=== PATIENT | female | born 1965 | race Hispanic/Latino ===

== ENCOUNTER 2019-04-27 21:50 | Inpatient (IN) | payer MEDICAID ==
[2019-04-27 22:26] VITALS: BMI 26.6
[2019-04-27 22:40] LABS: HCG,QUALITATIVE URINE NEGATIVE (NEGATIVE)
[2019-04-27 22:44] LABS: SQUAMOUS EPITHIAL < 1 /hpf (0-5); URINE BACTERIA RARE (<OCC); URINE BILIRUBIN NEGATIVE (NEGATIVE); URINE BLOOD NEGATIVE (NEGATIVE); URINE CLARITY Clear (Clear); URINE COLOR Colorless (YELLOW); URINE GLUCOSE (UA) NORMAL (Normal); URINE LEUKOCYTE ESTERASE 1+ Leu/uL (Negative); URINE PROTEIN NEGATIVE (NEGATIVE); URINE UROBILINOGEN NORMAL mg/dL (0.2-1.0)
--- NOTE | 2019-04-27 22:51 | C.PDOC ---
History Of Present Illness prescreened for heroine/alcohol detox 10 bags/day intranasal 6-pack of beer daily no IVDA <Neno Rowan - Last Filed: 04/27/19 23:20> History Per: Patient History/Exam Limitations: no limitations Onset/Duration Of Symptoms: Days Current Symptoms Are (Timing): Still Present Suicide/Self Injury Attempted (Context): None Modifying Factor(s): Alcohol, Narcotics Severity: Moderate Pain Scale Rating Of: 0 Associated Symptoms: Depression. denies: Anger, Anxiety, Agitation <Neno Rowan - Last Filed: 04/27/19 23:20> <Nayan Blair - Last Filed: 04/28/19 00:18> Time Seen by Provider: 04/27/19 22:25 Chief Complaint (Nursing): Substance Abuse Past Medical History Reviewed: Historical Data, Nursing Documentation - Medical History PMH: HTN, Hypothyroidism, Pulmonary Embolism, TIA Denies: Depression, Chronic Kidney Disease Surgical History: Tonsillectomy - [facility] INTRODUCE OTH THERAP SUBST IN PERIPH VEIN, PERC (11/08/16) MEASURE OF CARDIAC SAMPL & PRESSURE, L HEART, PERC APPROACH (11/08/16) OTHER SKIN & SUBQ I D (08/22/03) PERFORMANCE OF CARDIAC OUTPUT, SINGLE, MANUAL (11/08/16) PLAIN RADIOGRAPHY OF LEFT HEART USING LOW OSMOLAR CONTRAST (11/08/16) PLAIN RADIOGRAPHY OF MULT COR ART USING L OSM CONTRAST (11/08/16) Family History: States: No Known Family Hx - Social History Hx Tobacco Use: No Hx Alcohol Use: Yes Hx Substance Use: Yes - Immunization History Hx Tetanus Toxoid Vaccination: No Hx Influenza Vaccination: No Hx Pneumococcal Vaccination: No <Neno Rowan - Last Filed: 04/27/19 23:20> Vital Signs: Last Vital Signs Temp 97.7 F 04/27/19 22:29 Pulse 69 04/27/19 22:29 Resp 16 04/27/19 22:29 BP 122/74 04/27/19 22:29 Pulse Ox 96 04/27/19 22:29 - [facility] Procedures INTRODUCE OTH THERAP SUBST IN PERIPH VEIN, PERC (11/08/16) MEASURE OF CARDIAC SAMPL & PRESSURE, L HEART, PERC APPROACH (11/08/16) OTHER SKIN & SUBQ I D (08/22/03) PERFORMANCE OF CARDIAC OUTPUT, SINGLE, MANUAL (11/08/16) PLAIN RADIOGRAPHY OF LEFT HEART USING LOW OSMOLAR CONTRAST (11/08/16) PLAIN RADIOGRAPHY OF MULT COR ART USING L OSM CONTRAST (11/08/16) <Nayan Blair - Last Filed: 04/28/19 00:18> Review Of Systems Except As Marked, All Systems Reviewed And Found Negative. <Neno Rowan - Last Filed: 04/27/19 23:20> Physical Exam - Physical Exam Appears: Well, Toxic Skin: Normal Color, Warm Head: Atraumatic, Normacephalic Eye(s): bilateral: Normal Inspection Oral Mucosa: Moist <Neno Rowan - Last Filed: 04/27/19 23:20> ED Course And Treatment - Laboratory Results Result Diagrams: 04/27/19 23:11 <Neno Rowan - Last Filed: 04/27/19 23:20> - Laboratory Results Result Diagrams: 04/27/19 23:11 04/27/19 23:11 Lab Results: Total Bilirubin 0.2 mg/dL (0.2-1.3) 04/27/19 23:11 AST 40 U/L (14-36) H D 04/27/19 23:11 ALT 31 U/L (9-52) 04/27/19 23:11 Alkaline Phosphatase 83 U/L (38-126) 04/27/19 23:11 Total Protein 7.1 g/dL (6.3-8.3) 04/27/19 23:11 Albumin 4.1 g/dL (3.5-5.0) 04/27/19 23:11 Globulin 3.0 gm/dL (2.2-3.9) 04/27/19 23:11 Albumin/Globulin Ratio 1.4 (1.0-2.1) 04/27/19 23:11 Urine Color Colorless (YELLOW) 04/27/19 22:34 Urine Clarity Clear (Clear) 04/27/19 22:34 Urine pH 5.0 (5.0-8.0) 04/27/19 22:34 Ur Specific [place] 1.002 (1.003-1.030) L 04/27/19 22:34 Urine Protein Negative mg/dL (NEGATIVE) 04/27/19 22:34 Urine Glucose (UA) Normal mg/dL (Normal) 04/27/19 22:34 Urine Ketones Negative mg/dL (NEGATIVE) 04/27/19 22:34 Urine Blood Negative (NEGATIVE) 04/27/19 22:34 Urine Nitrate Negative (NEGATIVE) 04/27/19 22:34 Urine Bilirubin Negative (NEGATIVE) 04/27/19 22:34 Urine Urobilinogen Normal mg/dL (0.2-1.0) 04/27/19 22:34 Ur Leukocyte Esterase 1+ Elvin/uL (Negative) H 04/27/19 22:34 Urine WBC (Auto) 2 /hpf (0-5) 04/27/19 22:34 Urine RBC (Auto) < 1 /hpf (0-3) 04/27/19 22:34 Ur Squamous Epith Cells < 1 /hpf (0-5) 04/27/19 22:34 Urine Bacteria Rare (<OCC) 04/27/19 22:34 Urine HCG, Qual Negative (NEGATIVE) 04/27/19 22:34 Urine HCG, Qual Negative (NEGATIVE) 04/27/19 22:34 <Nayan Blair - Last Filed: 04/28/19 00:18> Disposition - Disposition Disposition Time: 00:00 <Neno Rowan - Last Filed: 04/27/19 23:20> <Nayan Blair - Last Filed: 04/28/19 00:18> - Disposition Condition: GOOD Forms: [employer] (Mexican) - Clinical Impression Clinical Impression: Drug abuse Physician Patient Turnover Patient Signed Over To: Nayan Blair Handoff Comments: pending Crisis Dispo <Neno Rowan - Last Filed: 04/27/19 23:20> Diag/Dispo/POA <Neno Rowan - Last Filed: 04/27/19 23:20> - Present on Admission Any Indicators Present on Admission: No <Nayan Blair - Last Filed: 04/28/19 00:18> - Discharge Diagnosis: Opioid use disorder, severe, dependence, Alcohol use disorder, severe, dependence Disposition: HOSPITALIZED Time Seen by Provider: 04/27/19 22:25 Forms: [employer] (Mexican)
[2019-04-27 23:08] LABS: BARBITURATES, UR NEGATIVE (NEGATIVE); BENZODIAZEPINES, UR NEGATIVE (NEGATIVE); PHENCYCLIDINE, UR NEGATIVE (NEGATIVE)
[2019-04-27 23:15] LABS: EOS # 0.2 K/uL (0.0-0.7); EOS % 3.6 % (0.0-4.0); HEMOGLOBIN 13.6 g/dL (11.0-16.0); LYMPH # 1.8 K/uL (1.0-4.3); LYMPH % 41.2 % (20.0-40.0); MEAN CELL VOLUME 97.7 fL (81.0-99.0); MEAN CORPUSCULAR HEMOGLOBIN 33.6 pg (27.0-31.0); MEAN CORPUSCULAR HGB CONC 34.4 g/dL (33.0-37.0); MEAN PLATELET VOLUME 8.2 fL (7.2-11.7); MONO # 0.6 K/uL (0.0-0.8); MONO % 12.6 % (0.0-10.0); NEUT # 1.9 K/uL (1.8-7.0); NEUT % 41.6 % (50.0-75.0); NRBC % 0.1 % (0.0-2.0); RBC 4.05 Mil/uL (3.80-5.20); RED CELL DISTRIBUTION WIDTH 13.5 % (11.5-14.5); WHITE BLOOD COUNT 4.5 K/uL (4.8-10.8)
[2019-04-27 23:29] LABS: OPIATES, UR POSITIVE (NEGATIVE)
[2019-04-27 23:30] LABS: ALB/GLOB RATIO 1.4 (1.0-2.1); ALBUMIN 4.1 g/dL (3.5-5.0); ALT/SGPT 31 U/L (9-52); AST/SGOT 40 U/L (14-36); BLOOD UREA NITROGEN 15 mg/dL (7-17); CALCIUM 9.3 mg/dl (8.6-10.4); GFR NON-AFRICAN AMERICAN > 60
--- NOTE | 2019-04-28 04:29 | PCM.BM ---
<Bradley Mendoza - Last Filed: 04/28/19 04:26> Treatment Plan Problems - Problems identified on initial assessmt Defensive Coping Date Initiated: 04/28/19 Time Initiated: 01:00 Assessment reference: NA Chronic Low Self Steem Date Initiated: 04/28/19 Time Initiated: 01:00 Assessment reference: NA Status: Active Denial Date Initiated: 04/28/19 Time Initiated: 01:00 Assessment reference: NA Status: Active Treatment assets and liabiliti Patient Assests: cooperative, self-reliant, ADL independent, cognitively intact Patient Liabilities: substance abuse - Milieu Protocol Maintain good personal hygiene: daily Encourage regular showers, daily Remind patient to perform daily oral care, daily Assist patient to perform ADL's Conduct patient checks and document Observation sheet: Q15 minutes Maintain personal safety: every shift Educate patient to report safety concerns to staff, every shift Monitor environment for contraband/sharps Medication safety: Monitor for expected outcome, potential side effects: every shift, Assess barriers to learning: every shift, Assess readiness for medication education: every shift <Irlanda Palacios - Last Filed: 04/28/19 13:18> - Diagnosis (1) Alcohol use disorder, severe, dependence Status: Acute Interventions: 04/28/19 13:18 * Assess 7x/week regarding severity of withdrawal * Educate regarding risks, benefits, side effects and alternatives of medications * Use Motivational Interviewing for abstinence * Use CBT for relapse prevention * Medication management for withdrawal symptoms * Encourage medication assisted treatment * (2) Opioid use disorder, severe, dependence Status: Acute Interventions: 04/28/19 13:18 * Assess 7x/week regarding severity of withdrawal * Educate regarding risks, benefits, side effects and alternatives of medications * Use Motivational Interviewing for abstinence * Use CBT for relapse prevention * Medication management for withdrawal symptoms * Encourage medication assisted treatment *
[2019-04-28] MEDS ORDERED: Aluminum Hydroxide/Magnesium Hydroxide Susp (30 mL) PO PRN (09:26)
[2019-04-28 10:05] VITALS: RESP 18
--- NOTE | 2019-04-28 11:49 | PCM.PSYCH ---
Initial Psychiatric Evaluation - Initial Psychiatric Evaluation Type of Admission: Voluntary Legal Status: Capacity Chief Complaint (in patient's own words): "I'm sick" History of Present Illness and Precipitating Events: Pt is converted to INPAT from OBS b/c she was withdrawing and needs inpatient level of care. Patient is a 53 year-old, female, who is (10 years) with 7 children. She lives by herself in [place], claims to own multiple properties, and has employment. She states that she has no support system, no friends, family, or siblings to talk to. She presents to [facility] in order to detox from opioids and alcohol. She admits to using 10 bags/day of heroin by sniffing and drinking six packs of beer per day for past 3 years. Her last alcohol and opioid was yesterday. She also claims to use 90mg of methadone as she got it from someone. She started to withdraw as her CPWS was higher than 10 and treatment started, She had been to detox 2 times in [facility]. She had been sober for few years, but relapsed when her father in November 2018. She also has been inconsistent with following up with outpatient clinic. She denies any history of seizure, blackouts or DTs from alcohol. Past Psychiatric History: multiple psych inpatient hospitalizations Family Psych History: Denies Past Medical History: HTN, hypothyroidism, PE, TIA Past Surgical History: Tonsillectomy Current Medications: Active Medications Generic Name Dose Route Start Last Admin Trade Name Freq PRN Reason Stop Dose Admin Al Hydrox/Mg Hydrox/Simethicone 30 ml 04/28/19 09:26 Maalox 30 Ml PO TID PRN Indigestion / Heartburn Clonidine HCl 0.1 mg 04/28/19 09:26 04/28/19 10:38 Catapres PO 0.1 mg Q4 PRN Administration COWS Score More or Equal to 5 Dicyclomine HCl 10 mg 04/28/19 09:26 Bentyl PO Q6 PRN Muscle spasm Hydroxyzine HCl 25 mg 04/28/19 01:08 04/28/19 01:14 Atarax PO 25 mg Q6 PRN Administration Anxiety Ibuprofen 600 mg 04/28/19 09:26 Motrin Tab PO Q6 PRN Pain, moderate (4-7) Loperamide HCl 2 mg 04/28/19 09:26 Imodium PO Q8 PRN Diarrhea Nicotine 1 patch 04/28/19 10:00 04/28/19 10:16 Nicoderm Cq TD 1 patch DAILY CROW Administration Ondansetron HCl 4 mg 04/28/19 09:26 Zofran Tab PO Q8 PRN Nausea/Vomiting Trazodone HCl 50 mg 04/28/19 01:45 Desyrel PO HS PRN Insomnia Past Psychiatric History - Past Psychiatric History Previous Treatment History: Inpatient Pertinent Medical Hx (Current Medical&Sleep Prob, Allergies): Allergies Allergy/AdvReac Type Severity Reaction Status Date / Time No Known Allergies Allergy Verified 04/27/19 22:40 Enalapril Maleate DAILY 04/27/19 Warfarin [Coumadin] 6 mg PO DAILY 04/27/19 Review of Systems - Psychiatric Psychiatric: Abnormal Sleep Pattern, Anhedonia, Anxiety, Auditory Hallucinations, Behavioral Changes, Depression, Difficulty Concentrating, Irritability (very), Mood Swings, Panic Attacks. absent: Hallucinations, Homicidal Ideation, Paranoia, Suicidal Ideation Mental Status Examination - Personal Presentation Personal Presentation: Looks older than stated age - Affect Affect: Constricted - Motor Activity Motor Activity: Psychomotor Agitation - Reliability in Providing Information Reliability in Providing Information: Fair - Speech Speech: Organized - Mood Mood: Depressed, Anxious, Other (irate) - Formal Thought Process Formal Thought Process: No Impairment - Cognitive Functions Orientation: Person, Place, Situation, Time Attention/Concentration: Easily distracted Estimate of Intelligence: Average Judgement: Intact, as evidence by: Insight regarding need for hospitalization Memory: Recent intact, as evidence by: Ability to recall events of the day, Remote intact, as evidenced by: Abilit to recall sig. life events - Risk Risk: Withdrawal, Diminished functioning - Strength & Assets Inventory Strength & Assets Inventory: Cooperative - Limitations Limitations: Other DSM 5 DX - DSM 5 DSM 5 Diagnosis: Opioid withdrawal Opioid use d/o - severe Alcohol use d/o - severe BARBARA r/o Panic d/o Depressive d/o - unspecified Personality d/o - unspecified - Recommended/Plan of Treatment Treatment Recommendations and Plan of Treatment: Taper with methadone Gabapentin for augmentation Lexapro for depression Monitor ETOH wdw sxs As needed medications All risks, benefits and alternatives of the meds discussed, and the pt agreed and understood. Attend groups and activities Supportive therapy and psychoeducation SC for abstinence CBT for relapse prevention Encourage MAT Refer to rehab or IOP, and self-help groups Teach healthy lifestyle methods, i.e. diet, exercise, meditation Smoking cessation with SC Nicotine patch if needed 34 min Projected ELOS: 4-5 days Prognosis: qing byrd treatment - Smoking Cessation Smoking Cessation Initiated: Yes
[2019-04-28 12:48] VITALS: O2SAT 98
[2019-04-28 17:15] VITALS: BP 150/89; PULSE 60; TEMP 98
--- NOTE | 2019-04-28 22:28 | PCM.PYCHDC ---
Mental Status Examination - Mental Status Examination Orientation: Person, Place, Situation, Time Memory: Intact Mood: Depressed, Anxious Affect: Constricted Speech: Appropriate Attention: WNL Concentration: Poor Association: WNL Fund of Knowledge: WNL Formal Thought Process: No Impairment Suicidal Ideation: No Current Homicidal Ideation?: No Discharge Summary - Discharge Note Reason for Hospitalization: opioid detox Laboratory Data: Abnormal Lab Results 04/27/19 04/27/19 04/27/19 22:34 22:40 23:11 WBC 4.5 L RBC 4.05 Hgb 13.6 Hct 39.6 MCV 97.7 MCH 33.6 H MCHC 34.4 RDW 13.5 Plt Count 198 MPV 8.2 Neut % (Auto) 41.6 L Lymph % (Auto) 41.2 H [place] % (Auto) 12.6 H Eos % (Auto) 3.6 Baso % (Auto) 1.0 Neut # (Auto) 1.9 Lymph # (Auto) 1.8 [place] # (Auto) 0.6 Eos # (Auto) 0.2 Baso # (Auto) 0.0 Sodium Potassium Chloride Carbon Dioxide Anion Gap BUN Creatinine Est GFR ( Amer) Est GFR (Non-Af Amer) Random Glucose Calcium Phosphorus Magnesium Total Bilirubin AST ALT Alkaline Phosphatase Total Protein Albumin Globulin Albumin/Globulin Ratio Urine Color Colorless Urine Clarity Clear Urine pH 5.0 Ur Specific [place] 1.002 L Urine Protein Negative Urine Glucose (UA) Normal Urine Ketones Negative Urine Blood Negative Urine Nitrate Negative Urine Bilirubin Negative Urine Urobilinogen Normal Ur Leukocyte Esterase 1+ H Urine WBC (Auto) 2 Urine RBC (Auto) < 1 Ur Squamous Epith Cells < 1 Urine Bacteria Rare Urine HCG, Qual Negative Urine Opiates Screen Positive H Urine Methadone Screen Positive H Ur Barbiturates Screen Negative Ur Phencyclidine Scrn Negative Ur Amphetamines Screen Negative U Benzodiazepines Scrn Negative U Oth Cocaine Metabols Negative U Cannabinoids Screen Negative Alcohol, Quantitative 04/27/19 23:11 WBC RBC Hgb Hct MCV MCH MCHC RDW Plt Count MPV Neut % (Auto) Lymph % (Auto) [place] % (Auto) Eos % (Auto) Baso % (Auto) Neut # (Auto) Lymph # (Auto) [place] # (Auto) Eos # (Auto) Baso # (Auto) Sodium 137 Potassium 4.4 Chloride 99 Carbon Dioxide 28 Anion Gap 14 BUN 15 Creatinine 0.7 Est GFR ( Amer) > 60 Est GFR (Non-Af Amer) > 60 Random Glucose 113 H Calcium 9.3 Phosphorus 4.0 Magnesium 1.9 Total Bilirubin 0.2 AST 40 H D ALT 31 Alkaline Phosphatase 83 Total Protein 7.1 Albumin 4.1 Globulin 3.0 Albumin/Globulin Ratio 1.4 Urine Color Urine Clarity Urine pH Ur Specific [place] Urine Protein Urine Glucose (UA) Urine Ketones Urine Blood Urine Nitrate Urine Bilirubin Urine Urobilinogen Ur Leukocyte Esterase Urine WBC (Auto) Urine RBC (Auto) Ur Squamous Epith Cells Urine Bacteria Urine HCG, Qual Urine Opiates Screen Urine Methadone Screen Ur Barbiturates Screen Ur Phencyclidine Scrn Ur Amphetamines Screen U Benzodiazepines Scrn U Oth Cocaine Metabols U Cannabinoids Screen Alcohol, Quantitative 228 H Consultations:: List each consultation separately and include: 1. Reason for request. 2. Findings. 3. Follow-up Summary of Hospital Course include:: 1. Description of specific treatment plan utilized for patients during their course of treatmen. 2. Summarize the time- course for resolution of acute symptoms and/or regressed behaviors. 3. Describe issues identified and worked on during hospitalization. 4. Describe medication utilized. 5. Describe medical problems identified and treated. 6. Reassessment of suicide risk Summary of Hospital Course: Pt is converted to INPAT from OBS b/c she was withdrawing and needs inpatient level of care. Patient is a 53 year-old, female, who is (10 years) with 7 children. She lives by herself in [place], claims to own multiple properties, and has employment. She states that she has no support system, no friends, family, or siblings to talk to. She presents to [facility] in order to detox from opioids and alcohol. She admits to using 10 bags/day of heroin by sniffing and drinking six packs of beer per day for past 3 years. Her last alcohol and opioid was yesterday. She also claims to use 90mg of methadone as she got it from someone. She started to withdraw as her CPWS was higher than 10 and treatment started, She had been to detox 2 times in [facility]. She had been sober for few years, but relapsed when her father in November 2018. She also has been inconsistent with following up with outpatient clinic. She denies any history of seizure, blackouts or DTs from alcohol. Past Psychiatric History: multiple psych inpatient hospitalizations Family Psych History: Denies Past Medical History: HTN, hypothyroidism, PE, TIA Past Surgical History: Tonsillectomy Hospital course: The pt was admitted and started on treatment with psychotherapy, support, psychoeducation and medications. All the risks and benefits of medications are discussed and the patient understood and agreed. ND and CBT used. The pt did not attend groups and activities, bc she was "very anxious" and eventually thanked us and left AMA. She said she would deal with it at home Risks, incl. OD and are discussed - she understood - Final Diagnosis (DSM 5) Condition upon Discharge: FAIR DSM 5: Opioid withdrawal Opioid use d/o - severe Alcohol use d/o - severe BARBARA r/o Panic d/o Depressive d/o - unspecified Personality d/o - unspecified Disposition: AGAINST MEDICAL ADVICE Follow-up Treatment Plan: Use relapse prevention skills Consider MAT Return to ER or call 911 if suicidal, homicidal or symptoms relapse. Stay away from stress, alcohol and drugs. See primary doctor regularly and get labs.
== END 2019-04-28 17:40 | disposition left against medical advice (07) | DRG 743 ==
LOC: C.ER 21:50 → C.7D 04-28 00:16 → C.7T 04-28 14:48 → C.7D 04-28 14:49
PROVIDERS: ADMIT Psychiatry & Neurology Psychiatry; ATTEND Psychiatry & Neurology Psychiatry
PROC: HZ2ZZZZ Detoxification Services for Substance Abuse Treatment (ICD-10-PCS; principal; 2019-04-28)
PROC: HZ52ZZZ Individual Psychotherapy for Substance Abuse Treatment, Cognitive-Behavioral (ICD-10-PCS; 2019-04-28)
PROC: HZ59ZZZ Individual Psychotherapy for Substance Abuse Treatment, Supportive (ICD-10-PCS; 2019-04-28)
PROC: HZ56ZZZ Individual Psychotherapy for Substance Abuse Treatment, Psychoeducation (ICD-10-PCS; 2019-04-28)
PROC: GZ58ZZZ Individual Psychotherapy, Cognitive-Behavioral (ICD-10-PCS; 2019-04-28)
PROC: GZ56ZZZ Individual Psychotherapy, Supportive (ICD-10-PCS; 2019-04-28)
DX: F11.23 Opioid dependence with withdrawal (principal); F10.20 Alcohol dependence, uncomplicated; F60.9 Personality disorder, unspecified; F32.9 Major depressive disorder, single episode, unspecified; I10 Essential (primary) hypertension; G47.00 Insomnia, unspecified; E03.9 Hypothyroidism, unspecified; Z86.73 Personal history of transient ischemic attack (TIA), and cerebral infarction without residual deficits; Z86.711 Personal history of pulmonary embolism